=== PATIENT | female | born 1965 | race Two or more races ===

== ENCOUNTER 2023-10-03 08:01 | Day surgery (SDC) | payer OTHER, MEDICAID ==
[2023-09-30 15:03] LABS: Basophils # (auto) 0.1 10 ^3/uL (0-0.2); Basophils % (auto) 1.2 % (0.0-2.0); Eosinophils # (auto) 0.1 10 ^3/uL (0-0.8); Eosinophils % (auto) 1.6 % (0.0-7.0); Hematocrit 39.2 % (36.0-46.0); Lymphocytes # (auto) 1.9 10 ^3/uL (0.4-5.4); Lymphocytes % (auto) 20.5 % (10.0-50.0); Mean Corpuscular Hemoglobin 32.6 pg (28.0-32.0); Mean Corpuscular Hgb Conc. 35.7 g/dL (32.0-36.0); Mean Corpuscular Volume 91.3 fL (80.0-100.0); Monocytes # (auto) 0.8 10 ^3/uL (0-1.3); Monocytes % (auto) 8.4 % (0.0-12.0); Neutrophils # (auto) 6.2 10 ^3/uL (1.6-8.6); Neutrophils % (auto) 68.3 % (37.0-80.0); Nucleated Red Blood Cells % 0.3 %; Red Blood Cells 4.29 10^6/uL (4.0-5.20)
[2023-09-30 15:33] LABS: INR 1.13 (0.9-1.15); Partial Thromboplastin Time 27.7 SEC (24.5-34.5); Prothrombin Time 11.9 sec (9.3-11.8)
[2023-09-30 15:34] LABS: Alanine Aminotransferase 33 U/L (7-40); Albumin 4.5 g/dL (3.2-4.8); Alkaline Phosphatase 80 U/L (46-116); Anion Gap 14 (5-15); Aspartate Aminotransferase 27 U/L (13-40); BUN/Creatinine Ratio 17.7 (10.0-20.0); Bilirubin, Total 1.1 mg/dL (0.2-1.0); Blood Urea Nitrogen 11 mg/dL (9-23); Calcium 11.5 mg/dL (8.7-10.4); Carbon Dioxide 17 mmol/L (20-30); Chloride 105 mmol/L (98-107); Glucose 107 mg/dL (74-106); Sodium 136 mmol/L (136-145); Total Protein 7.6 g/dL (5.7-8.2)
[2023-09-30 15:57] LABS: Potassium 2.5 mmol/L (3.5-5.1)
[~2023-10-03] VITALS: Ht 154.9 cm; Wt 68.0 kg
[2023-10-03] MEDS ORDERED: DexAMETHasone SOD PHOS 10MG/1ML VIAL INJ IV ONE (08:02)
[2023-10-03 08:32] LABS: Chloride 108 mmol/L (98-107); Potassium 2.6 mmol/L (3.5-5.1); Sodium 140 mmol/L (136-145)
[2023-10-03 08:33] LABS: Anion Gap 16 (5-15); Calcium 11.1 mg/dL (8.7-10.4); Carbon Dioxide 16 mmol/L (20-30)
[2023-10-03 08:38] LABS: BUN/Creatinine Ratio 14.5 (10.0-20.0); Blood Urea Nitrogen 11 mg/dL (9-23); Glucose 127 mg/dL (74-106)
[2023-10-03] MEDS ORDERED: BENZOCAINE (DENTAL) 20 % SPRAY 60ML MT ONE (08:41)
[2023-10-03] MEDS ORDERED: POTASSIUM CHLORIDE 40 MEQ, LIDOCAINE 1% (LOCAL ANESTH.) 4 ML in SODIUM CHL 0.9% 250 ML IV ONE (09:30)
[2023-10-03] MEDS ORDERED: MIDAZOLAM HCL 2MG/2ML 2ml VIAL (1mg/ml) ONE (14:27)
[2023-10-03] MEDS ORDERED: KETAMINE 50mg/ML 1ml syringe ONE (14:27)
[2023-10-03] MEDS ORDERED: MEPERIDINE HCL (25 MG/ML) 1ML VIAL ONE (14:31)
[2023-10-03 14:58] VITALS: PULSE 90; RESP 13; TEMP 98.2; O2SAT 100
[2023-10-03 15:43] VITALS: BP 144/85; PULSE 85; RESP 23; O2SAT 98
[2023-10-03] MEDS: LIDOCAINE VISCOUS 2% 15ML UD ONE (16:56)
== END 2023-10-03 15:55 | disposition home or self-care (01) ==
LOC: GI 08:01
PROVIDERS: ATTEND Internal Medicine Gastroenterology
DX: R19.7 Diarrhea, unspecified (principal); K92.1 Melena; K57.30 Diverticulosis of large intestine without perforation or abscess without bleeding; K63.89 Other specified diseases of intestine; K29.50 Unspecified chronic gastritis without bleeding; R12 Heartburn; R10.9 Unspecified abdominal pain; R11.2 Nausea with vomiting, unspecified; K20.90 Esophagitis, unspecified without bleeding; K21.9 Gastro-esophageal reflux disease without esophagitis; I10 Essential (primary) hypertension; M06.9 Rheumatoid arthritis, unspecified; Z90.49 Acquired absence of other specified parts of digestive tract; Z98.890 Other specified postprocedural states
CPT/HCPCS: 36415; 43239; 45380; 80048; 80053; 84132; 85025; 85610; 85730; 88305; 88312; 88342; J1100; J2175; J2250; J3480; J7030; J7050; J2001